=== PATIENT | female | born 1965 | race Caucasian/White ===

== ENCOUNTER 2020-01-04 14:23 | Emergency (ER) | payer OTHER ==
[~2020-01-04] VITALS: Ht 170.2 cm; Wt 86.2 kg
--- NOTE | 2020-01-04 14:25 | NUR ---
PT TO ER BED 6
[2020-01-04 14:29] VITALS: BP 108/55
--- NOTE | 2020-01-04 14:52 | NUR ---
54 YO FEMALE CO OF RIGHT FOOT PAIN X2D. PT STATED THAT SHE STEPPED WRONG AND HEARD A CRUNCH. THERE IS BRUISING AND SWELLING ON THE FOOT. PT STATES PAIN IS 8/10. PT IS ABLE TO WALK ON FOOT BUT NOT VERY WELL. PT IS RESTING IN BED WITH X1 BEDRAIL UP FOR SAFETY.
[2020-01-04 16:22] VITALS: BP 108/55
--- NOTE | 2020-01-04 16:23 | NUR ---
SPLINT APPLIED BY EMT. PULSES PALPABALE AND STRONG. FOOT WARM TO THE TOUCH. PT VERBALIZED UNDERSTANDING OF USE OF CRUTCHED. PT WAS ABLE TO VERBALIZE AND GIVE RETURN DEMONSTRATION.
--- NOTE | 2020-01-04 16:29 | NUR ---
Patient discharged with v/s stable. Written and verbal after care instructions given and explained. Patient alert, oriented and verbalized understanding of instructions. Ambulatory with steady gait. All questions addressed prior to discharge. ID band removed. Patient advised to follow up with PMD. Rx of ZOFRAN AND OMEPREZOLE given. Patient educated on indication of medication including possible reaction and side effects. Opportunity to ask questions provided and answered.
== END 2020-01-04 16:29 | disposition home or self-care (01) ==
LOC: MED 14:23
DX: S93.601A Unspecified sprain of right foot, initial encounter (principal); K29.70 Gastritis, unspecified, without bleeding; Z90.49 Acquired absence of other specified parts of digestive tract; Z86.79 Personal history of other diseases of the circulatory system; Z90.710 Acquired absence of both cervix and uterus; Z88.8 Allergy status to other drugs, medicaments and biological substances; Z88.1 Allergy status to other antibiotic agents; Z98.890 Other specified postprocedural states; W22.8XXA Striking against or struck by other objects, initial encounter; Y93.89 Activity, other specified; Y92.89 Other specified places as the place of occurrence of the external cause; Y99.8 Other external cause status
CPT/HCPCS: 29515; 73630; 99283; Q0092

== ENCOUNTER 2023-10-23 13:08 | Emergency (ER) | payer OTHER ==
[~2023-10-23] VITALS: Ht 170.2 cm; Wt 68.6 kg
[2023-10-23 13:28] VITALS: BP 113/79; PULSE 90; RESP 18; TEMP 98; O2SAT 89
[2023-10-23] MEDS ORDERED: ACETAMINOPHEN 325 MG TAB PO ONE (14:25)
[2023-10-23] MEDS ORDERED: predniSONE 20 MG TAB PO ONE (14:30)
[2023-10-23 14:52] LABS: BASOPHILS % (AUTO) 0.3 % (0.0-2.0); EOSINOPHILS % (AUTO) 0.6 % (0.0-4.0); HEMATOCRIT 33.5 % (36-48); HEMOGLOBIN 11.4 g/dL (12.0-16.0); LYMPHOCYTES % (AUTO) 28.7 % (20.5-51.1); MEAN CORPUSCULAR HEMOGLOBIN 31 pg (27-31); MEAN CORPUSCULAR HGB CONC 34 g/dL (33-37); MEAN CORPUSCULAR VOLUME 89.8 fL (80-94); MONOCYTES # (AUTO) 0.2 K/uL (0.8-1.0); NEUTROPHILS # (AUTO) 2.3 K/uL (1.8-7.7); NEUTROPHILS % (AUTO) 65.4 % (42.2-75.2); PLATELET COUNT (AUTO) 122 K/uL (140-450); RED BLOOD CELL COUNT(AUTO) 3.74 MIL/uL (4.20-5.40); RED CELL DISTRIBUTION WIDTH 15.9 % (11.6-13.7); WHITE BLOOD COUNT (AUTO) 3.5 K/uL (4.8-10.8)
[2023-10-23 15:14] LABS: APPEARANCE,URINE CLEAR (CLEAR); BILIRUBIN,URINE NEGATIVE (NEGATIVE); BLOOD, URINE NEGATIVE (NEGATIVE); COLOR,URINE YELLOW (YELLOW); LEUKOCYTE ESTERASE ,URINE 1+ (NEGATIVE); NITRITE, URINE NEGATIVE (NEGATIVE); PROTEIN,URINE TRACE (NEGATIVE); UGLUCOSE NEGATIVE (NEGATIVE); UROBILINOGEN,URINE 0.2 EU/dL (0.2 - 1)
[2023-10-23 15:16] LABS: ALANINE AMINOTRANSFERASE 18 U/L (12-78); ALBUMIN 3.6 g/dL (3.4-5.0); ALKALINE PHOSPHATASE 88 U/L (50-136); ANION GAP 8.2 (8-16); ASPARTATE AMINOTRANSFERASE 19 U/L (15-37); CALCIUM 7.8 mg/dL (8.5-10.1); CARBON DIOXIDE 32.6 mmol/L (21-32); CHLORIDE 107 mmol/L (98-107); CREATININE 0.6 mg/dL (0.6-1.3); GFR ARICAN-AMERICAN 131 mL/min (>90); GFR NON ARICAN-AMERICAN 108 mL/min (>90); GLUCOSE 96 mg/dL (74-106); LIPASE 23 U/L (16-77); SODIUM SERUM 145 mmol/L (136-145); TOTAL BILIRUBIN 0.6 mg/dL (0.0-1.0); TOTAL PROTEIN, SERUM 6.7 g/dL (6.4-8.2); UREA NITROGEN, BLOOD 10 mg/dL (7-18)
[2023-10-23 15:21] LABS: BACTERIA,URINE 0-2 /HPF (None Seen); MUCUS,URINE None Seen /LPF (None Seen); RBC,URINE 0 /HPF (0-5); SQUAMOUS EPITHELIAL CELL,UR 0-3 (FEW) /LPF (0-3 (FEW)); WBC,URINE 0-5 /HPF (0-5)
[2023-10-23 15:25] LABS: POTASSIUM 2.8 mmol/L (3.5-5.1)
[2023-10-23] MEDS ORDERED: POTASSIUM CHLORIDE 20% 40 MEQ/15 ML UDC PO ONE (15:25)
[2023-10-23] MEDS ORDERED: ALBU0.0912 IH (15:42)
[2023-10-23] MEDS ORDERED: DOXY-690 PO (15:42)
[2023-10-23] MEDS ORDERED: PRED20TA5 PO (15:42)
[2023-10-23] MEDS ORDERED: ACET-10509 PO (15:42)
[2023-10-23] MEDS ORDERED: POTASSIUM CHLORIDE 20% 40 MEQ/15 ML UDC ONE (16:53)
[2023-10-23 17:30] VITALS: BP 113/79; PULSE 90; RESP 18; TEMP 98; O2SAT 95
== END 2023-10-23 17:30 | disposition home or self-care (01) ==
LOC: MED 13:08
DX: J20.9 Acute bronchitis, unspecified (principal); E87.6 Hypokalemia; R10.9 Unspecified abdominal pain; Z79.899 Other long term (current) drug therapy
CPT/HCPCS: 36415; 71045; 80053; 81001; 83690; 84484; 85025; 87086; 93005; 99285; J7512